=== PATIENT | female | born 1965 | race Caucasian/White ===

== ENCOUNTER 2020-03-16 11:10 | Outpatient (CLI) | payer BC ==
[2020-03-16 12:13] LABS: BASOPHILS # (AUTO) 0.03 x10^3/uL (0-0.1); BASOPHILS % (AUTO) 0 % (0-1); EOSINOPHILS # (AUTO) 0.03 x10^3/uL (0-0.4); EOSINOPHILS % (AUTO) 0 % (1-7); LYMPHOCYTES # (AUTO) 1.86 x10^3/uL (1-3.4); LYMPHOCYTES % (AUTO) 21 % (22-44); MD NO; MEAN CORPUSCULAR HEMOGLOBIN 33.2 pg (27.0-34.8); MEAN CORPUSCULAR HGB CONC 33.3 g/dL (32.4-35.8); MEAN PLATELET VOLUME 8.1 fL (7.4-10.4); MONOCYTES # (AUTO) 0.63 x10^3/uL (0.2-0.8); MONOCYTES % (AUTO) 7 % (2-9); NEUTROPHILS # (AUTO) 6.27 x10^3/uL (1.8-6.8); NEUTROPHILS % (AUTO) 71 % (42-75); PLATELET COUNT 259 x10^3/uL (130-400); RED BLOOD COUNT 4.92 x10^6/uL (3.82-5.3); RED CELL DISTRIBUTION WIDTH 13.3 % (9.6-15.2)
[2020-03-16 12:28] LABS: MICROSCOPIC AUTO
[2020-03-16 12:34] LABS: ALANINE AMINOTRANSFERASE 84 U/L (12-78); ALBUMIN 3.7 g/dL (3.4-5.0); ANION GAP 5 mmol/L (5-15); CALCIUM 9.4 mg/dL (8.5-10.1); CHLORIDE 101 mmol/L (98-107); CREATININE 0.67 mg/dL (0.55-1.02)
[2020-03-16 12:37] LABS: ALKALINE PHOSPHATASE 75 U/L (45-117); BILIRUBIN,TOTAL 0.5 mg/dL (0.2-1.0)
[2020-03-16] MEDS ORDERED: ESCI10TA10 PO (13:08)
[2020-03-16] MEDS ORDERED: LISI1TAB20 PO (13:08)
== END 2020-03-16 23:59 | disposition home or self-care (01) ==
LOC: STAR 11:10
PROVIDERS: ATTEND Orthopaedic Surgery
DX: Z01.818 Encounter for other preprocedural examination (principal); M17.11 Unilateral primary osteoarthritis, right knee
CPT/HCPCS: 36415; 80053; 81001; 85025; 87081; 87086; 87806; G0475

== ENCOUNTER 2020-03-27 08:02 | Observation (INO) | payer BC ==
[~2020-03-27] VITALS: Ht 165.1 cm; Wt 105.0 kg
[~2020-03-27 08:02] MED LIST: BACITRACIN 50,000 UNIT ONE; EPINEPHRINE 1 MG/ML, 1ML ONE; ESCI10TA10 PO; KETOROLAC 60 MG/2 ML ONE; LISI1TAB20 PO; ROPIvacaine/PF 0.2%, 20 ML ONE; SODIUM CHLORIDE 0.9% 50 ML ONE; TRANEXAMIC ACID 100 MG/ML, 10ML ONE; morphine SULFATE/PF 1 MG/ML, 10ML ONE
[2020-03-27] MEDS ORDERED: MIDAZOLAM 1 MG/ML, 2ML ONE (08:29)
[2020-03-27] MEDS ORDERED: FENTANYL PF 250 MCG/5ML ONE (08:30)
[2020-03-27] MEDS ORDERED: LACTATED RINGERS 1,000 ML IV SCH (08:45)
[2020-03-27] MEDS ORDERED: LIDOCAINE-MPF 1%, 2ML INFIL ONE (09:00)
[2020-03-27] MEDS ORDERED: CHLORHEXIDINE 15 ML UDC MM ONE (09:00)
[2020-03-27] MEDS ORDERED: VANCOMYCIN PMX 1GM/200ML 200 ML IV ONE (09:30)
[2020-03-27] MEDS ORDERED: ACETAMINOPHEN 500 MG TABLET ONE (11:00)
[2020-03-27] MEDS ORDERED: GABAPENTIN 300 MG CAPSULE ONE (11:00)
[2020-03-27] MEDS ORDERED: SCOPOLAMINE 1MG PATCH TD ONE (11:01)
[2020-03-27] MEDS ORDERED: GLYCOPYRROLATE 0.2MG/1ML, 5ML ONE (11:24)
[2020-03-27] MEDS ORDERED: PROPOFOL 10 MG/ML, 20ML ONE (11:24)
[2020-03-27] MEDS ORDERED: CEFAZOLIN 1,000 MG ONE (11:24)
[2020-03-27] MEDS ORDERED: ROCURONIUM 10MG/ML,5ML ONE (11:24)
[2020-03-27] MEDS ORDERED: SUCCINYLCHOLINE 20 MG/ML, 10ML ONE (11:24)
[2020-03-27] MEDS ORDERED: ONDANSETRON 2MG/ML, 2ML ONE (11:24)
[2020-03-27] MEDS ORDERED: DEXAMETHASONE 4 MG/ML, 1ML ONE (11:24)
[2020-03-27] MEDS ORDERED: NEOSTIGMINE 1 MG/ML, 10ML ONE (11:24)
[2020-03-27] MEDS ORDERED: TRANEXAMIC ACID 1,000 MG in SODIUM CHLORIDE 0.9% 100 ML IV ONE (11:30)
[2020-03-27] MEDS ORDERED: DIAZEPAM 5 MG/ML, 2ML IVPush PRN (11:30)
[2020-03-27] MEDS ORDERED: morphine SULFATE 10 MG/ML, 1ML IVPush PRN (11:30)
[2020-03-27] MEDS ORDERED: PROMETHAZINE 25 MG/ML, 1ML IV PRN (11:30)
[2020-03-27] MEDS ORDERED: LABETALOL 5MG/ML, 20ML IV PRN (11:30)
[2020-03-27] MEDS ORDERED: MEPERIDINE/PF 25MG/0.5ML IVPush PRN (11:30)
[2020-03-27] MEDS ORDERED: ALBUTEROL SULFATE 2.5 MG/3 ML NPPB PRN (11:30)
[2020-03-27] MEDS ORDERED: OXYcodone 5 MG/5 ML ORAL.SOL UDC PO PRN (11:30)
[2020-03-27] MEDS ORDERED: LORazepam 2 MG/ML, 1ML IVPush PRN (11:30)
[2020-03-27] MEDS ORDERED: HYDROmorphone 2 MG/ML, 1ML IVPush PRN (11:30)
[2020-03-27] MEDS ORDERED: hydrALAzine 20 MG/ML, 1ML IV PRN (11:30)
[2020-03-27] MEDS ORDERED: CEFAZOLIN PMX 2GM/50ML 50 ML IVPB SCH (11:30)
[2020-03-27] MEDS ORDERED: KETOROLAC 30 MG/1 ML IV PRN (11:30)
[2020-03-27] MEDS ORDERED: ONDANSETRON 2MG/ML, 2ML IVPush PRN (11:30)
[2020-03-27] MEDS ORDERED: DIPHENHYDRAMINE 50 MG CAPSULE PO PRN (11:30)
[2020-03-27] MEDS ORDERED: ACETAMINOPHEN 325 MG TABLET PO PRN ×2 (11:30)
[2020-03-27] MEDS ORDERED: OXYcodone 5 MG/5 ML ORAL.SOL UDC ONE (13:18)
[2020-03-27] MEDS ORDERED: FENTANYL PF 100 MCG/2ML ONE ×2 (13:18→13:49)
[2020-03-27] MEDS: D5%-0.45% NACL 1,000 ML IV SCH ×3 (13:30→23:30)
[2020-03-27] MEDS: FENTANYL PF 100 MCG/2ML IV PRN ×5 (13:30→14:06)
[2020-03-27] MEDS: OXYcodone/APAP 7.5/325MG TABLET PO PRN ×2 (18:37→22:41)
[2020-03-27 19:00] VITALS: BP 100/66
[2020-03-27] MEDS: CEFAZOLIN PMX 2GM/50ML 50 ML IVPB SCH (19:44)
[2020-03-27] MEDS ORDERED: ZOLPIDEM 5MG TABLET PO PRN (21:00)
[2020-03-27 23:37] VITALS: BP 97/59
[2020-03-28] MEDS: CEFAZOLIN PMX 2GM/50ML 50 ML IVPB SCH ×2 (03:55→12:33)
[2020-03-28] MEDS: OXYcodone/APAP 7.5/325MG TABLET PO PRN ×3 (03:55→12:23)
[2020-03-28 04:22] VITALS: BP 109/65
[2020-03-28] MEDS: D5%-0.45% NACL 1,000 ML IV SCH ×3 (04:27→14:30)
[2020-03-28 07:58] VITALS: BP 115/73
[2020-03-28] MEDS ORDERED: LISINOPRIL 20 MG TABLET PO SCH (09:00)
[2020-03-28] MEDS ORDERED: ESCITALOPRAM 10MG TABLET PO SCH (09:00)
[2020-03-28] MEDS ORDERED: HYDROCHLOROTHIAZIDE 25 MG TABLET PO SCH (09:00)
[2020-03-28] MEDS ORDERED: VANCOMYCIN PMX 1GM/200ML 200 ML IVPB ONE (10:00)
[2020-03-28 13:50] VITALS: BP 132/54
[2020-03-28] MEDS ORDERED: OXYC-302 PO (14:19)
[2020-03-28] MEDS ORDERED: ASPIRIN 325 MG TABLET EC PO SCH (17:00)
[2020-03-28] MEDS ORDERED: DOCUSATE 100 MG CAPSULE PO SCH (21:00)
== END 2020-03-28 14:39 | disposition home or self-care (01) ==
LOC: OUT 08:02 → 4NE 14:37 → OUT 14:47 → ORIP 14:47 → 4NE 16:10 → DCLOUNGE 03-28 14:30
PROVIDERS: ADMIT Orthopaedic Surgery; ATTEND Orthopaedic Surgery
DX: Z03.818 Encounter for observation for suspected exposure to other biological agents ruled out (principal); M17.11 Unilateral primary osteoarthritis, right knee; E66.9 Obesity, unspecified; I10 Essential (primary) hypertension; Z79.899 Other long term (current) drug therapy
CPT/HCPCS: 27447; 36415; 73564; 85018; 87635; 96365; 96366; 96367; 97110; 97161; 97165; C1713; C1776; G0378; J0171; J0330; J0690; J1100; J1885; J2250; J2405; J2704; J2710; J2795; J3010; J3370; J7120; J2274